=== PATIENT | female | born 1945 | race Native Hawaiian/Other Pacific Islander ===

== ENCOUNTER 2017-03-26 20:02 | Emergency (ER) | payer OTHER ==
[2017-03-26 20:02] VITALS: BMI 23.0
[2017-03-26 21:15] LABS: BASO # 0.1 K/uL (0.0-0.2); BASO % 0.8 % (0.0-2.0); EOS # 0.2 K/uL (0.0-0.7); EOS % 3.1 % (0.0-4.0); LYMPH # 1.7 K/uL (1.0-4.3); LYMPH % 22.3 % (20.0-40.0); MEAN CELL VOLUME 89.3 fL (81.0-99.0); MEAN CORPUSCULAR HGB CONC 33.6 g/dL (33.0-37.0); MEAN PLATELET VOLUME 6.3 fL (7.2-11.7); MONO # 0.4 K/uL (0.0-0.8); MONO % 5.2 % (0.0-10.0); NEUT # 5.3 K/uL (1.8-7.0); NEUT % 68.6 % (50.0-75.0); RBC 4.66 Mil/uL (3.80-5.20); WHITE BLOOD COUNT 7.7 K/uL (4.8-10.8)
[2017-03-26 21:28] LABS: ALBUMIN 4.6 g/dL (3.5-5.0); ALT/SGPT 48 U/L (9-52); AST/SGOT 45 U/L (14-36); BLOOD UREA NITROGEN 12 mg/dL (7-17); CALCIUM 9.1 mg/dl (8.6-10.4); GFR AFRICAN-AMERICAN > 60; GFR NON-AFRICAN AMERICAN > 60
[2017-03-26 21:29] LABS: ALB/GLOB RATIO 1.2 (1.0-2.1)
[2017-03-26 21:40] LABS: B-TYPE NATRIURETIC PEPTIDE 161 pg/mL (0-900)
[2017-03-26 22:47] LABS: URINE BILIRUBIN NEGATIVE (NEGATIVE); URINE BLOOD 2+ (NEGATIVE); URINE CLARITY Clear (Clear); URINE COLOR Straw (YELLOW); URINE GLUCOSE (UA) NORMAL (Normal); URINE LEUKOCYTE ESTERASE NEG Leu/uL (Negative); URINE NITRATE NEGATIVE (NEGATIVE); URINE PROTEIN 1+ mg/dL (NEGATIVE); URINE UROBILINOGEN NORMAL mg/dL (0.2-1.0)
--- NOTE | 2017-03-26 22:51 | C.PDOC ---
History Of Present Illness 72 year old female with with PMHx of HTN presents to the ED c/o headache and high blood pressure. Patient reports she took her bP at home and her systolic was 200, patient reports taking her medication this morning and came tonight for the headache. Currently asymptomatic and her BP on arrival was systolic 125 patient reports taking aspirin 81 mg at home this afternoon. Patient denies CP, SOB, weakness, numbness, headache. Chief Complaint (Nursing): High Blood Pressure History Per: Patient History/Exam Limitations: no limitations Onset/Duration Of Symptoms: Hrs Current Symptoms Are (Timing): Gone Associated Symptoms: Headache Quality Of Symptoms: Asymptomatic Severity: None Pain Scale Rating Of: 4 Exacerbating Factor(s): Pos: None Recent travel outside of the [place]: No Additional History Per: Patient Past Medical History Reviewed: Historical Data, Nursing Documentation, Vital Signs Vital Signs: Last Vital Signs Temp 97.7 F 03/27/17 01:48 Pulse 68 03/27/17 03:47 Resp 20 03/27/17 03:47 BP 169/86 H 03/27/17 01:48 Pulse Ox 98 03/27/17 03:47 - Medical History PMH: HTN, Hypercholesterolemia, Hypothyroidism Denies: Chronic Kidney Disease Surgical History: Endoscopy - [facility] Procedures ENDOSC POLYPECTOMY OF LG INTEST (04/06/14) ESOPHAGOGASTRODUODENOSCOPY [EGD] W/CLOSED BIOPSY (12/02/12) Family History: States: Unknown Family Hx - Social History Hx Tobacco Use: No Hx Alcohol Use: No Hx Substance Use: No - Immunization History Hx Tetanus Toxoid Vaccination: No Hx Influenza Vaccination: No Hx Pneumococcal Vaccination: No Review Of Systems Constitutional: Negative for: Fever, Chills Eyes: Negative for: Pain ENT: Negative for: Ear Pain Cardiovascular: Positive for: Palpitations. Negative for: Chest Pain, Orthopnea , Paroxysmal Noc. Dyspnea, Edema, Light Headedness Respiratory: Negative for: Cough, Shortness of Breath, Hemoptysis, SOB with Excertion, Pleuritic Pain, Sputum, Wheezing Gastrointestinal: Negative for: Nausea, Vomiting, Abdominal Pain Genitourinary: Negative for: Dysuria Musculoskeletal: Negative for: Neck Pain Skin: Negative for: Rash Neurological: Positive for: Headache. Negative for: Weakness, Numbness, Incoordination, Change in Speech, Confusion, Seizures, Altered Mental Status, Dizziness Psych: Negative for: Anxiety Physical Exam - Physical Exam Appears: Non-toxic, No Acute Distress Skin: Normal Color, Warm, Dry Head: Atraumatic, Normacephalic Eye(s): bilateral: Normal Inspection Ear(s): Bilateral: Normal Nose: Normal, No Discharge, No Epistaxis, No Deformity Oral Mucosa: Moist Tongue: Normal Appearing Lips: Normal Appearing Teeth: Normal Dentition Gingiva: Normal Appearing Throat: Normal Neck: Normal ROM, Supple Chest: Symmetrical Cardiovascular: Rhythm Regular, No Murmur Respiratory: Normal Breath Sounds, No Rales, No Rhonchi, No Stridor Gastrointestinal/Abdominal: Soft, No Tenderness, No Guarding, No Rebound Back: Normal Inspection Extremity: Normal ROM, No Pedal Edema, No Calf Tenderness, No Deformity, No Swelling Neurological/Psych: Oriented x3, Normal Speech, Normal Cognition Gait: Steady ED Course And Treatment - Laboratory Results Result Diagrams: 03/26/17 21:07 03/26/17 21:07 ECG: Interpreted By Me, Viewed By Me ECG Rhythm: Sinus Bradycardia Interpretation Of ECG: Sinus martha 57 MI 182, QRS 92, Qt 469, Qtc 467 Rate From EC O2 Sat by Pulse Oximetry: 96 (On RA ) Pulse Ox Interpretation: Normal - Radiology CXR: Interpreted by Me, Viewed By Ca CXR Interpretation: Yes: Other (slight hyperinflated no effusions, unchanged from 12/06/2016). No: Infiltrates, Cardiomegaly - CT Scan/US Head CT Other Rad Studies (CT/US): Read By Radiologist, Radiology Report Reviewed CT/US Interpretation: EXAM: CT Head Without Intravenous Contrast. CLINICAL HISTORY: 72 years old, female; Pain; Headache; Additional info: Seizure. TECHNIQUE: Axial computed tomography images of the head/brain without intravenous contrast. All CT scans at. this facility use one or more dose reduction techniques, viz.: automated exposure control; ma/kV. adjustment per patient size (including targeted exams where dose is matched to indication; i.e. head);. or iterative reconstruction technique. COMPARISON: No relevant prior studies available. FINDINGS: Brain: Moderate atrophy. No intracranial hemorrhage. No mass. Mild encephalomalacia within left. temporal parietal region. Several scattered foci of decreased attenuation within. periventricular /subcortical white matter. No definite edema. Ventricles: No hydrocephalus. Bones/joints: No acute fracture. Craniotomy. Soft tissues: Unremarkable. Vasculature: Aneurysm clips. Atherosclerotic disease of intracranial arteries. Sinuses: No acute sinusitis. Mastoid air cells: No mastoid effusion. Orbits: Unremarkable as visualized. IMPRESSION. 1. Nonspecific white matter changes. Acute infarction may be CT occult within first 24 hours. If a. focal deficit persists, consider followup CT or MRI for further evaluation. 2. Incidental/non -acute findings are described above. Medical Decision Making Medical Decision Making: Plan: * CT head * Labs * Troponin neg * ETOH 251 * MPV 6.3 * Na 130 * Chloride 92 * CXR * slight hyperinflated no effusions, unchanged from 12/06/2016 * UA * EKG * Sinus martha 57 MI 182, QRS 92, Qt 469, Qtc 467 ct head neg. labs unremarkable. pt feels well/ no complaints or symptoms. Disposition Counseled Patient/Family Regarding: Diagnosis - Disposition Referrals: [facility] [place] [Outside] [facility] [Outside] [facility] [place] [Outside] Disposition: HOME/ ROUTINE Disposition Time: 01:42 Condition: GOOD Additional Instructions: return to ed if symptoms return Instructions: Acute Headache (ED), Hypertension (ED) Forms: [employer] (Prydeinig) - Clinical Impression Clinical Impression: Headache, HTN (hypertension) - Scribe Statement The provider has reviewed the documentation as recorded by the Scribe Mauricio Garza All medical record entries made by the Scribe were at my direction and personally dictated by me. I have reviewed the chart and agree that the record accurately reflects my personal performance of the history, physical exam, medical decision making, and the department course for this patient. I have also personally directed, reviewed, and agree with the discharge instructions and disposition.
--- NOTE | 2017-03-27 00:18 | CT ---
EXAM: CT Head Without Intravenous Contrast CLINICAL HISTORY: 72 years old, female; Pain; Headache; Additional info: Seizure TECHNIQUE: Axial computed tomography images of the head/brain without intravenous contrast. All CT scans at this facility use one or more dose reduction techniques, viz.: automated exposure control; ma/kV adjustment per patient size (including targeted exams where dose is matched to indication; i.e. head); or iterative reconstruction technique. COMPARISON: No relevant prior studies available. FINDINGS: Brain: Moderate atrophy. No intracranial hemorrhage. No mass. Mild encephalomalacia within left temporal parietal region. Several scattered foci of decreased attenuation within periventricular/subcortical white matter. No definite edema. Ventricles: No hydrocephalus. Bones/joints: No acute fracture. Craniotomy. Soft tissues: Unremarkable. Vasculature: Aneurysm clips. Atherosclerotic disease of intracranial arteries. Sinuses: No acute sinusitis. Mastoid air cells: No mastoid effusion. Orbits: Unremarkable as visualized. IMPRESSION: 1. Nonspecific white matter changes. Acute infarction may be CT occult within first 24 hours. If a focal deficit persists, consider followup CT or MRI for further evaluation. 2. Incidental/non-acute findings are described above.
[2017-03-27 01:49] VITALS: BP 169/86; TEMP 97.7
[2017-03-27 03:50] VITALS: PULSE 68; RESP 20
--- NOTE | 2017-03-27 08:47 | RAD ---
HISTORY: Seizure COMPARISON: 12/06/2016 TECHNIQUE: Chest PA and lateral FINDINGS: LUNGS: No consolidation PLEURA: No significant pleural effusion identified. No pneumothorax apparent. CARDIOVASCULAR: Normal. OSSEOUS STRUCTURES: Thoracic spondylosis VISUALIZED UPPER ABDOMEN: Normal. OTHER FINDINGS: None. IMPRESSION: No active disease.
--- NOTE | 2017-03-27 14:05 | CARD ---
APPROVED REPORT EKG Measurement Heart [id number] FL 182P70 [id number] <Conclusion> Sinus bradycardia Possible Left atrial enlargement Abnormal ECG
[2017-03-28 01:43] VITALS: O2SAT 96
== END 2017-03-27 03:50 | disposition home or self-care (01) ==
LOC: C.ER 20:02
DX: I10 Essential (primary) hypertension (principal); R51 Headache; E03.9 Hypothyroidism, unspecified; E78.00 Pure hypercholesterolemia, unspecified

== ENCOUNTER 2017-03-31 18:14 | Emergency (ER) | payer OTHER ==
[2017-03-31 18:15] VITALS: BMI 23.0
[2017-03-31 19:41] VITALS: TEMP 98.3
[2017-03-31 20:03] LABS: BASO # 0.1 K/uL (0.0-0.2); BASO % 0.8 % (0.0-2.0); EOS # 0.2 K/uL (0.0-0.7); EOS % 2.4 % (0.0-4.0); HEMOGLOBIN 14.3 g/dL (11.0-16.0); LYMPH # 1.8 K/uL (1.0-4.3); LYMPH % 22.7 % (20.0-40.0); MEAN CELL VOLUME 89.2 fL (81.0-99.0); MEAN CORPUSCULAR HEMOGLOBIN 30.3 pg (27.0-31.0); MEAN PLATELET VOLUME 6.3 fL (7.2-11.7); MONO # 0.4 K/uL (0.0-0.8); MONO % 5.2 % (0.0-10.0); NEUT # 5.6 K/uL (1.8-7.0); NEUT % 68.9 % (50.0-75.0); RBC 4.72 Mil/uL (3.80-5.20); RED CELL DISTRIBUTION WIDTH 12.8 % (11.5-14.5); WHITE BLOOD COUNT 8.1 K/uL (4.8-10.8)
[2017-03-31 20:33] LABS: B-TYPE NATRIURETIC PEPTIDE 178 pg/mL (0-900)
[2017-03-31 20:40] LABS: ALB/GLOB RATIO 1.2 (1.0-2.1); ALBUMIN 4.6 g/dL (3.5-5.0); ALT/SGPT 41 U/L (9-52); AST/SGOT 37 U/L (14-36); BLOOD UREA NITROGEN 18 mg/dL (7-17); CALCIUM 9.1 mg/dl (8.6-10.4); GFR AFRICAN-AMERICAN > 60; GFR NON-AFRICAN AMERICAN > 60
--- NOTE | 2017-03-31 20:56 | C.PDOC ---
History Of Present Illness Patient is a 72 y/o female who presents to the ED witha complaint of elevated blood pressure. Patient reports to have taken her blood pressure at home and found her systolic BP elevated at 200, prompting visit. Denies CP or SOB. Patient was last seen in ED on 03/26/16 for similar complaints; labs and CT head were negative. BP currently 160/70s and heart rate currently ~55 bpm. Patient currently asymptomatic and is nonagreeable for repeat head CT. No other physical complaints at this time. Time Seen by Provider: 03/31/17 19:16 Chief Complaint (Nursing): High Blood Pressure History Per: Patient History/Exam Limitations: no limitations Onset/Duration Of Symptoms: Hrs (today) Current Symptoms Are (Timing): Gone Associated Symptoms: denies: Chest Pain Quality Of Symptoms: Asymptomatic Recent travel outside of the [place]: No Past Medical History Reviewed: Historical Data, Nursing Documentation, Vital Signs Vital Signs: Last Vital Signs Temp 98.3 F 03/31/17 19:40 Pulse 51 L 04/01/17 00:17 Resp 15 04/01/17 00:17 BP 117/68 04/01/17 00:17 Pulse Ox 95 04/01/17 00:17 - Medical History PMH: HTN, Hypercholesterolemia, Hypothyroidism Denies: Chronic Kidney Disease Surgical History: Endoscopy - [facility] Procedures ENDOSC POLYPECTOMY OF LG INTEST (04/06/14) ESOPHAGOGASTRODUODENOSCOPY [EGD] W/CLOSED BIOPSY (12/02/12) Family History: States: Unknown Family Hx - Social History Hx Tobacco Use: No Hx Alcohol Use: No Hx Substance Use: No - Immunization History Hx Tetanus Toxoid Vaccination: No Hx Influenza Vaccination: No Hx Pneumococcal Vaccination: No Review Of Systems Cardiovascular: Positive for: Other (HTN). Negative for: Chest Pain Respiratory: Negative for: Shortness of Breath Physical Exam - Physical Exam Appears: Well, Non-toxic, No Acute Distress Skin: Normal Color, Warm, Dry Head: Atraumatic, Normacephalic Oral Mucosa: Moist Chest: Symmetrical Cardiovascular: Rhythm Regular, No Murmur Respiratory: Normal Breath Sounds, No Rales, No Rhonchi, No Wheezing Gastrointestinal/Abdominal: Soft, No Tenderness Neurological/Psych: Oriented x3, Normal Speech, Normal Cognition ED Course And Treatment - Laboratory Results Result Diagrams: 03/31/17 19:55 04/01/17 00:19 ECG: Interpreted By Me, Viewed By Me ECG Rhythm: Sinus Bradycardia Interpretation Of ECG: NH 174. QRS 96. QT 446. QTC 449. no ischemic changes Rate From EC (bpm) O2 Sat by Pulse Oximetry: 97 (room air) Pulse Ox Interpretation: Normal Progress Note: CXR, EKG, UA ordered. IV fluids administered. Patient to have repeat blood work. Medical Decision Making Medical Decision Making: Lab results: CBC unremarkable negative troponin BNP 178 sodium 127 hypertensive Disposition Counseled Patient/Family Regarding: Diagnosis - Disposition Condition: STABLE Forms: [employer] (Lao) - Clinical Impression Clinical Impression: Hyponatremia, HTN (hypertension) - Scribe Statement The provider has reviewed the documentation as recorded by the Scribe Leah Davidson All medical record entries made by the Scribe were at my direction and personally dictated by me. I have reviewed the chart and agree that the record accurately reflects my personal performance of the history, physical exam, medical decision making, and the department course for this patient. I have also personally directed, reviewed, and agree with the discharge instructions and disposition.
[2017-03-31] MEDS ORDERED: Sodium Chloride 0.9% 1,000 ML IV ONE (22:10)
[2017-03-31] MEDS ORDERED: Sodium Chloride 0.9% 1,000 ML ONE (22:32)
[2017-03-31 22:58] LABS: URINE BACTERIA RARE (<OCC); URINE BILIRUBIN NEGATIVE (NEGATIVE); URINE BLOOD 2+ (NEGATIVE); URINE CLARITY Clear (Clear); URINE COLOR Colorless (YELLOW); URINE GLUCOSE (UA) NORMAL (Normal); URINE LEUKOCYTE ESTERASE NEG Leu/uL (Negative); URINE NITRATE NEGATIVE (NEGATIVE); URINE PROTEIN NEGATIVE (NEGATIVE); URINE UROBILINOGEN NORMAL mg/dL (0.2-1.0)
[2017-04-01 00:48] LABS: BLOOD UREA NITROGEN 14 mg/dL (7-17); CALCIUM 8.1 mg/dl (8.6-10.4); GFR AFRICAN-AMERICAN > 60; GFR NON-AFRICAN AMERICAN > 60
[2017-04-01 00:51] VITALS: O2SAT 97
[2017-04-01 01:32] VITALS: BP 153/80; PULSE 57; RESP 20
--- NOTE | 2017-04-02 23:08 | CARD ---
APPROVED REPORT EKG Measurement Heart [id number] DC 174P66 [id number] <Conclusion> Sinus bradycardia Possible Left atrial enlargement Borderline ECG
== END 2017-04-01 01:45 | disposition home or self-care (01) ==
LOC: C.ER 18:14
DX: I10 Essential (primary) hypertension (principal); E87.1 Hypo-osmolality and hyponatremia; E78.00 Pure hypercholesterolemia, unspecified
CPT/HCPCS: 36415; 80048; 80053; 81001; 83880; 84484; 85025; 93005; 96360; 99285; J7040

== ENCOUNTER 2018-03-10 11:08 | Emergency (ER) | payer OTHER ==
[2018-03-10 11:28] VITALS: BMI 21.5
[2018-03-10 11:35] VITALS: RESP 16
[2018-03-10 12:02] LABS: BASO % 0.6 % (0.0-2.0); EOS # 0.3 K/uL (0.0-0.7); EOS % 5.6 % (0.0-4.0); HEMOGLOBIN 14.2 g/dL (11.0-16.0); LYMPH # 1.7 K/uL (1.0-4.3); LYMPH % 28.1 % (20.0-40.0); MEAN CELL VOLUME 90.6 fL (81.0-99.0); MEAN CORPUSCULAR HEMOGLOBIN 30.8 pg (27.0-31.0); MEAN PLATELET VOLUME 6.9 fL (7.2-11.7); MONO # 0.4 K/uL (0.0-0.8); MONO % 6.6 % (0.0-10.0); NEUT # 3.5 K/uL (1.8-7.0); NEUT % 59.1 % (50.0-75.0); RBC 4.6 Mil/uL (3.80-5.20); RED CELL DISTRIBUTION WIDTH 13.1 % (11.5-14.5)
[2018-03-10 12:12] LABS: PROTHROMBIN TIME 10.5 SECONDS (9.7-12.2)
[2018-03-10 12:13] LABS: ALB/GLOB RATIO 1.4 (1.0-2.1); ALBUMIN 4.6 g/dL (3.5-5.0); ALT/SGPT 45 U/L (9-52); AST/SGOT 41 U/L (14-36); BLOOD UREA NITROGEN 23 mg/dL (7-17); CALCIUM 9.3 mg/dl (8.6-10.4); GFR NON-AFRICAN AMERICAN > 60
[2018-03-10 12:26] LABS: URINE BILIRUBIN NEGATIVE (NEGATIVE); URINE CLARITY Clear (Clear); URINE COLOR Colorless (YELLOW); URINE GLUCOSE (UA) NORMAL (Normal); URINE LEUKOCYTE ESTERASE NEG Leu/uL (Negative); URINE PROTEIN NEGATIVE (NEGATIVE); URINE UROBILINOGEN NORMAL mg/dL (0.2-1.0)
[2018-03-10 12:27] LABS: CK-MB 2.97 ng/mL (0.0-3.38)
[2018-03-10 12:33] LABS: URINE BLOOD 1+ (NEGATIVE)
--- NOTE | 2018-03-10 12:59 | C.PDOC ---
History Of Present Illness 73 year old female presents to the ED complaining of generalized weakness for approximate one week. Also complains of worsening back pain primarily to the right upper back ongoing for several months. Contrary to triage, patient denies chest pain. Denies any weakness, numbness, shortness of breath, palpitations, abdominal pain, nausea, vomiting, diarrhea, or dysuria. Time Seen by Provider: 03/10/18 11:52 Chief Complaint (Nursing): Weakness/Neurological Deficit History Per: Patient History/Exam Limitations: no limitations Onset/Duration Of Symptoms: Days Current Symptoms Are (Timing): Still Present Past Medical History Reviewed: Historical Data, Nursing Documentation, Vital Signs Vital Signs: Last Vital Signs Temp 97.8 F 03/10/18 11:27 Pulse 60 03/10/18 11:27 Resp 16 03/10/18 11:27 BP 188/94 H 03/10/18 11:27 Pulse Ox 96 03/10/18 11:27 - Medical History PMH: HTN, Hypercholesterolemia, Hypothyroidism Denies: Chronic Kidney Disease Surgical History: Endoscopy - [facility] Procedures ENDOSC POLYPECTOMY OF LG INTEST (04/06/14) ESOPHAGOGASTRODUODENOSCOPY [EGD] W/CLOSED BIOPSY (12/02/12) Family History: States: No Known Family Hx - Social History Hx Tobacco Use: No Hx Alcohol Use: No Hx Substance Use: No - Immunization History Hx Tetanus Toxoid Vaccination: No Hx Influenza Vaccination: No Hx Pneumococcal Vaccination: No Review Of Systems Constitutional: Positive for: Weakness Cardiovascular: Negative for: Chest Pain, Palpitations Respiratory: Negative for: Shortness of Breath Gastrointestinal: Negative for: Nausea, Vomiting, Abdominal Pain, Diarrhea Genitourinary: Negative for: Dysuria, Incontinence Musculoskeletal: Positive for: Back Pain (right upper back) Neurological: Negative for: Weakness, Numbness Physical Exam - Physical Exam Appears: Non-toxic, No Acute Distress Skin: Warm, Dry, No Rash Head: Normacephalic Eye(s): bilateral: Normal Inspection Neck: Supple Chest: Symmetrical Cardiovascular: Rhythm Regular Respiratory: Normal Breath Sounds, No Rales, No Rhonchi, No Wheezing Gastrointestinal/Abdominal: Soft, No Tenderness, No Guarding, No Rebound Back: Other (Tenderness to T3-T4 spine. No midline tenderness ) Neurological/Psych: Oriented x3, Normal Speech Gait: Steady ED Course And Treatment - Laboratory Results Result Diagrams: 03/10/18 11:59 03/10/18 11:59 ECG: Interpreted By Me, Viewed By Me ECG Rhythm: Sinus Bradycardia, R BBB Interpretation Of ECG: Left axis deviation. No acute ST/T wave changes. Rate From EC O2 Sat by Pulse Oximetry: 96 (RA) Pulse Ox Interpretation: Normal Progress Note: EkG ordered and reviewed. Blood and urine collected and sent to the lab for analysis. Disposition Counseled Patient/Family Regarding: Diagnosis, Need For Followup - Disposition Referrals: Ashok Gavin MD [Medical Doctor] - Disposition: HOME/ ROUTINE Disposition Time: 15:25 Condition: STABLE Additional Instructions: FOLLOW UP WITH YOUR DOCTOR IN 1-2 DAYS RETURN TO ER IF SYMPTOMS WORSEN Instructions: Weakness (ED) Forms: [facility] (Italian), General Discharge Instructions Print Language: AMERICAN - Clinical Impression Clinical Impression: Generalized weakness - Scribe Statement The provider has reviewed the documentation as recorded by the Scribe Kiki Heredia All medical record entries made by the Scribe were at my direction and personally dictated by me. I have reviewed the chart and agree that the record accurately reflects my personal performance of the history, physical exam, me dical decision making, and the department course for this patient. I have also personally directed, reviewed, and agree with the discharge instructions and disposition.
[2018-03-10] MEDS ORDERED: Sodium Chloride 0.9% 500 ML IV ONE (13:46)
[2018-03-10] MEDS ORDERED: Sodium Chloride 0.9% 1,000 ML ONE (13:59)
--- NOTE | 2018-03-10 15:11 | CT ---
Date of service: 03/10/2018 CT chest without IV contrast Indication: RIGHT CHEST PAIN/UPPER BACK PAIN Technique: Contiguous axial images were obtained through the chest without intravenous contrast enhancement. Sagittal and coronal reconstructions were generated and reviewed. This CT exam was performed using 1 or more of the following dose reduction techniques: Automated exposure control, adjustment of the MAA and/or kV according to patient size, and/or use of iterative reconstruction technique. Radiation dose (DLP): 218.9 MGy-cm. Comparison: Chest x-ray performed 10/21/17 Findings: Visualized portions of the inferior thyroid gland appear unremarkable. The unenhanced mediastinal and hilar vascular structures appear grossly unremarkable. The heart appears within normal limits of size. Coronary artery calcifications. No focal consolidation. No pleural effusion. No pneumothorax. No suspicious pulmonary nodules measuring greater than 5 mm. Limited visualization of the noncontrast upper abdomen: Partially imaged cholelithiasis. Partially imaged too small to characterize 9 mm low-density exophytic lesion, left kidney; measures approximately 10 Hounsfield units favored to represent cyst. Multilevel degenerative changes of the spine. Impression: No acute pulmonary pathology identified. Limited visualization of the noncontrast upper abdomen: Partially imaged cholelithiasis. Partially imaged too small to characterize 9 mm low-density exophytic lesion, left kidney; measures approximately 10 Hounsfield units favored to represent cyst. Multilevel degenerative changes of the spine.
[2018-03-10 15:37] VITALS: BP 157/85; PULSE 61; TEMP 97.6; O2SAT 97
--- NOTE | 2018-03-11 12:28 | CARD ---
APPROVED REPORT Date of service: 03/10/2018 EKG Measurement Heart [id number] NH 184P56 [id number] <Conclusion> Sinus bradycardia Possible Left atrial enlargement Incomplete right bundle branch block Cannot rule out Anterior infarct, age undetermined Abnormal ECG
== END 2018-03-10 15:36 | disposition home or self-care (01) ==
LOC: C.ER 11:08
DX: R53.1 Weakness (principal); I10 Essential (primary) hypertension; E78.00 Pure hypercholesterolemia, unspecified; E03.9 Hypothyroidism, unspecified

== ENCOUNTER 2018-04-02 16:10 | Emergency (ER) | payer OTHER ==
[2018-04-02 16:15] VITALS: BMI 21.7
[2018-04-02 16:18] VITALS: BP 151/82; PULSE 66; RESP 20; TEMP 97.4; O2SAT 96
--- NOTE | 2018-04-02 16:33 | C.PDOC ---
History Of Present Illness 73 y/o female presents to the ED complaining of upper back pain for a few weeks. She was seen previously in the ED on 03/10/18 and had a negative PE study. CT showed degenerative changes at that time. Patient is due for outpatient CT of the spine and c-spine, arrives with prescriptions for studies. She denies any new pain or SOB. Time Seen by Provider: 04/02/18 16:27 Chief Complaint (Nursing): Back Pain History Per: Patient History/Exam Limitations: no limitations Onset/Duration Of Symptoms: Days Current Symptoms Are (Timing): Still Present Past Medical History Reviewed: Historical Data, Nursing Documentation, Vital Signs Vital Signs: Last Vital Signs Temp 97.4 F L 04/02/18 16:15 Pulse 66 04/02/18 16:15 Resp 20 04/02/18 16:15 BP 151/82 H 04/02/18 16:15 Pulse Ox 96 04/02/18 16:15 - Medical History PMH: HTN, Hypercholesterolemia, Hypothyroidism Denies: Chronic Kidney Disease Surgical History: Endoscopy - [facility] Procedures ENDOSC POLYPECTOMY OF LG INTEST (04/06/14) ESOPHAGOGASTRODUODENOSCOPY [EGD] W/CLOSED BIOPSY (12/02/12) Family History: States: Unknown Family Hx - Social History Hx Tobacco Use: No Hx Alcohol Use: No Hx Substance Use: No - Immunization History Hx Tetanus Toxoid Vaccination: No Hx Influenza Vaccination: No Hx Pneumococcal Vaccination: No Review Of Systems Except As Marked, All Systems Reviewed And Found Negative. Constitutional: Negative for: Fever, Chills Cardiovascular: Negative for: Chest Pain, Palpitations Respiratory: Negative for: Shortness of Breath Gastrointestinal: Negative for: Vomiting, Abdominal Pain Musculoskeletal: Positive for: Back Pain. Negative for: Neck Pain Neurological: Negative for: Weakness, Numbness Physical Exam - Physical Exam Appears: Well, Non-toxic, No Acute Distress Skin: Normal Color, Warm, Dry Head: Atraumatic, Normacephalic Eye(s): bilateral: Normal Inspection, PERRL, EOMI Oral Mucosa: Moist Neck: Normal ROM, Supple Chest: Symmetrical Respiratory: No Accessory Muscle Use, Other (No respiratory distress) Gastrointestinal/Abdominal: Soft, No Distention Back: Paraspinal Tenderness Extremity: Bilateral: Atraumatic, Normal ROM Neurological/Psych: Oriented x3 ED Course And Treatment O2 Sat by Pulse Oximetry: 96 (RA) Pulse Ox Interpretation: Normal Medical Decision Making Medical Decision Making: Impression: Back pain Plan: --30 mg IM Toradol given for pain control Advised patient to go to outpatient imaging to complete studies as ordered. no emergent indicatio for studies. Disposition - Disposition Disposition: HOME/ ROUTINE Disposition Time: 16:00 Condition: STABLE Additional Instructions: follow up with your doctor/clinic. please continue with your imaging as an outpatient return to any er with worsening symptoms or concern Prescriptions: RX: Naproxen [Naprosyn] 500 mg PO BID PRN #14 tablet PRN Reason: Pain, Mild (1-3) Instructions: Upper Back Pain Forms: [employer] (Slovak) - Clinical Impression Clinical Impression: Back pain - Scribe Statement The provider has reviewed the documentation as recorded by the Che Bynum Provider Attestation: All medical record entries made by the Viancaibnga were at my direction and personally dictated by me. I have reviewed the chart and agree that the record accurately reflects my personal performance of the history, physical exam, medical decision making, and the department course for this patient. I have also personally directed, reviewed, and agree with the discharge instructions and disposition.
== END 2018-04-02 16:58 | disposition home or self-care (01) ==
LOC: C.ER 16:10
DX: M54.9 Dorsalgia, unspecified (principal)
CPT/HCPCS: 96372; 99283; J1885

== ENCOUNTER 2018-04-07 13:30 | Outpatient (CLI) | payer OTHER | END 2018-04-07 13:31 | disposition home or self-care (01) | LOC: C.CTH 13:30 ==

== ENCOUNTER 2018-04-27 19:50 | Emergency (ER) | payer OTHER ==
[2018-04-27 19:50] VITALS: BMI 21.7
[2018-04-27 20:32] VITALS: RESP 20
[2018-04-27] MEDS ORDERED: Naproxen 550 mg Tab PO STA (21:03)
[2018-04-27 21:17] VITALS: O2SAT 98
--- NOTE | 2018-04-27 21:18 | C.PDOC ---
History Of Present Illness 73 y/o female presents to the ED for evaluation of elevated blood pressure. Patient checked her pressure at home and found it to be high. She then began feeling anxious and came to the ED. Patient also complains of chronic bilateral shoulder, arm, and trapezius pain. Reports she took her naprosyn 500mg around 5:00pm for the pain. Of note, patient is not prescribed any blood pressure meds, but states she tok metoprolol at 5:00pm as well, from an old bottle. Patient admits that her home blood pressure cuff may be the wrong size. Otherwise she denies any chest pain, palpitations, SOB, visual changes, headache, or other complaints. Time Seen by Provider: 04/27/18 20:53 Chief Complaint (Nursing): High Blood Pressure History Per: Patient History/Exam Limitations: no limitations Onset/Duration Of Symptoms: Hrs Current Symptoms Are (Timing): Still Present Past Medical History Reviewed: Historical Data, Nursing Documentation, Vital Signs Vital Signs: Last Vital Signs Temp 97.7 F 04/27/18 20:27 Pulse 62 04/27/18 21:15 Resp 20 04/27/18 21:15 BP 143/80 04/27/18 21:15 Pulse Ox 98 04/27/18 21:15 - Medical History PMH: HTN (DC-ed from meds), Hypercholesterolemia, Hypothyroidism Denies: Chronic Kidney Disease Surgical History: Endoscopy - [facility] Procedures ENDOSC POLYPECTOMY OF LG INTEST (04/06/14) ESOPHAGOGASTRODUODENOSCOPY [EGD] W/CLOSED BIOPSY (12/02/12) Family History: States: Unknown Family Hx - Social History Hx Tobacco Use: No Hx Alcohol Use: No Hx Substance Use: No - Immunization History Hx Tetanus Toxoid Vaccination: No Hx Influenza Vaccination: No Hx Pneumococcal Vaccination: No Review Of Systems Constitutional: Negative for: Fever, Chills Eyes: Negative for: Vision Change Cardiovascular: Negative for: Chest Pain, Palpitations Respiratory: Negative for: Shortness of Breath Gastrointestinal: Negative for: Nausea, Vomiting, Diarrhea Neurological: Positive for: Dizziness. Negative for: Weakness, Headache Psych: Positive for: Anxiety Physical Exam - Physical Exam Appears: Non-toxic, No Acute Distress, Other (Appears very anxious) Skin: Warm, Dry Head: Atraumatic, Normacephalic Eye(s): bilateral: Normal Inspection Oral Mucosa: Moist Neck: Normal ROM Chest: Symmetrical, No Tenderness Cardiovascular: Rhythm Regular, No Murmur Respiratory: Normal Breath Sounds, No Accessory Muscle Use, Other (No respiratory distress) Gastrointestinal/Abdominal: Soft, No Tenderness, No Distention Extremity: Bilateral: Atraumatic, Normal Color And Temperature Pulses: Left Dorsalis Pedis: Normal, Right Dorsalis Pedis: Normal Neurological/Psych: Oriented x3 ED Course And Treatment - Laboratory Results Result Diagrams: 04/27/18 22:42 04/27/18 22:42 Lab Interpretation: Normal (trop neg.) ECG: Interpreted By Me ECG Rhythm: Sinus Rhythm ECG Interpretation: Normal Rate From EC O2 Sat by Pulse Oximetry: 98 (RA) Pulse Ox Interpretation: Normal - Radiology CXR: Interpreted by Me CXR Interpretation: Yes: No Acute Disease Progress Note: xanax PO Reevaluation Time: 23:19 Reassessment Condition: Improved Medical Decision Making Medical Decision Making: Initial Plan: --Labs --EKG --Chest x-ray --Xanax 0.25 mg PO --Naproxen 550 mg PO --Vasotec 20 mg PO anxiety about BP usually NOT on any BP meds instructed to NOT use BP cuff @ home. Disposition Doctor Will See Patient In The: Office Counseled Patient/Family Regarding: Studies Performed, Diagnosis - Disposition Disposition: HOME/ ROUTINE Disposition Time: 23:20 Condition: GOOD Forms: [facility] (Slovenian) - Clinical Impression Clinical Impression: Anxiety about health - Scribe Statement The provider has reviewed the documentation as recorded by the Che Bynum Provider Attestation: All medical record entries made by the Che were at my direction and personally dictated by me. I have reviewed the chart and agree that the record accurately reflects my personal performance of the history, physical exam, med ical decision making, and the department course for this patient. I have also personally directed, reviewed, and agree with the discharge instructions and disposition.
[2018-04-27 22:50] LABS: BASO % 0.7 % (0.0-2.0); EOS # 0.4 K/uL (0.0-0.7); EOS % 5.9 % (0.0-4.0); LYMPH # 1.7 K/uL (1.0-4.3); LYMPH % 27.5 % (20.0-40.0); MEAN CELL VOLUME 90.1 fL (81.0-99.0); MEAN CORPUSCULAR HEMOGLOBIN 29.9 pg (27.0-31.0); MEAN CORPUSCULAR HGB CONC 33.1 g/dL (33.0-37.0); MEAN PLATELET VOLUME 6.8 fL (7.2-11.7); MONO # 0.4 K/uL (0.0-0.8); MONO % 5.9 % (0.0-10.0); NEUT # 3.7 K/uL (1.8-7.0); RBC 4.37 Mil/uL (3.80-5.20); RED CELL DISTRIBUTION WIDTH 13.8 % (11.5-14.5); WHITE BLOOD COUNT 6.1 K/uL (4.8-10.8)
[2018-04-27 23:03] LABS: ALB/GLOB RATIO 1.6 (1.0-2.1); ALBUMIN 4.2 g/dL (3.5-5.0); ALT/SGPT 22 U/L (9-52); AST/SGOT 42 U/L (14-36); BLOOD UREA NITROGEN 18 mg/dL (7-17); CALCIUM 8.8 mg/dl (8.6-10.4); GFR NON-AFRICAN AMERICAN > 60
[2018-04-27 23:14] LABS: B-TYPE NATRIURETIC PEPTIDE 212 pg/mL (0-900)
[2018-04-27 23:39] VITALS: BP 144/71; PULSE 69; TEMP 97.3
--- NOTE | 2018-04-28 12:20 | RAD ---
Date of service: 04/27/2018 PROCEDURE: CHEST RADIOGRAPH, 1 VIEW HISTORY: SOB COMPARISON: 10/21/2017 FINDINGS: LUNGS: Clear. PLEURA: No pneumothorax or pleural fluid seen. CARDIOVASCULAR: Atherosclerotic calcifications identified primarily aortic arch. No radiographic findings to suggest acute or significant cardiovascular disease. OSSEOUS STRUCTURES: No significant abnormalities. VISUALIZED UPPER ABDOMEN: Normal. OTHER FINDINGS: None. IMPRESSION: No active disease. No acute/significant interval changes.
--- NOTE | 2018-04-29 14:18 | CARD ---
APPROVED REPORT Date of service: 04/27/2018 EKG Measurement Heart [id number] <Conclusion> Sinus bradycardia Possible Left atrial enlargement Incomplete right bundle branch block Borderline ECG
== END 2018-04-27 23:39 | disposition home or self-care (01) ==
LOC: C.ER 19:50
DX: F41.9 Anxiety disorder, unspecified (principal); I10 Essential (primary) hypertension

== ENCOUNTER 2018-08-03 08:40 | Outpatient (CLI) | payer OTHER | END 2018-08-03 08:41 | disposition home or self-care (01) | LOC: C.RADH 08:40 ==